=== PATIENT | female | born 1960 | race Caucasian/White ===

== ENCOUNTER → 2016-07-16 | Outpatient (CLI) | payer OTHER ==
--- NOTE | 2016-07-16 12:50 | MR ---
EXAMINATION TYPE: MR shoulder LT wo con DATE OF EXAM: 07/16/2016 11:58 AM COMPARISON: NONE HISTORY: lLeft shoulder pain TECHNIQUE: Multiplanar multispin echo imaging of the left shoulder was performed. FINDINGS: Rotator cuff : Increased signal along the undersurface of the supraspinatus tendon compatible with pa rtial undersurface tear. Remaining rotator cuff tendons are intact. Bursa: No bursal effusion or thickening is seen. Musculature: Abnormal signal surrounding and within a portion of the supraspinatus musculature compat ible with a strain with partial tear. Acromioclavicular joint : Small subacromial spur. Mild impingement. Osseous structures : There are no fractures or regions of abnormal bone marrow signal intensity. Long biceps tendon : The biceps tendon is normally situated within the bicipital groove. No complete or partial biceps tendon tear is present. Glenohumeral Joint fluid : There is no glenohumeral joint effusion. Cartilage and Bone : No focal hyaline cartilage defects are noted. No Hill-Sachs, reverse Hill-Sachs, or bony Bankart lesions are seen. Labrum : There are no SLAP or soft tissue Bankart lesions. No paralabral cysts are seen. OTHER FINDINGS : none IMPRESSION: 1. Abnormal signal surrounding and within a portion of the supraspinatus musculature compatible with a strain with partial tear. 2. Increased signal along the undersurface of the supraspinatus tendon compatible with partial unders urface tear.
== END | disposition home or self-care (01) ==
LOC: RADMRIMAIN 11:00
PROVIDERS: ATTEND Family Medicine
DX: R93.6 Abnormal findings on diagnostic imaging of limbs (principal); S46.012D Strain of muscle(s) and tendon(s) of the rotator cuff of left shoulder, subsequent encounter

== ENCOUNTER → 2016-11-06 | Outpatient (CLI) | payer OTHER ==
--- NOTE | 2016-11-08 11:01 | MM ---
Reason for exam: screening (asymptomatic). Last mammogram was performed 2 years and 9 months ago. History: Patient is postmenopausal. Physical Findings: A clinical breast exam by your physician is recommended on an annual basis and results should be correlated with mammographic findings. MG Screening Mammo w CAD Bilateral CC and MLO view(s) were taken. Prior study comparison: February 05, 2014, bilateral MG screening mammo w CAD. February 27, 2011, mammogram, performed at [facility]. The breast tissue is heterogeneously dense. This may lower the sensitivity of mammography. No significant changes when compared with prior studies. ASSESSMENT: Benign, BI-RAD 2 RECOMMENDATION: Routine screening mammogram of both breasts in 1 year.
== END | disposition home or self-care (01) ==
LOC: RADMAMWWP 07:18
PROVIDERS: ATTEND Family Medicine
DX: Z12.31 Encounter for screening mammogram for malignant neoplasm of breast (principal)

== ENCOUNTER 2016-12-19 08:02 | Day surgery (SDC) | payer OTHER ==
[2016-12-17 13:44] VITALS: BMI 25.0
--- NOTE | 2016-12-19 07:36 | P.GSHP ---
History of Present Illness H&P Date: 12/19/16 CHIEF COMPLAINT: Colon screen HISTORY OF PRESENT ILLNESS: The patient is a 56-year-old female who presents for colon screen. Lower endoscopy was offered for further evaluation and management. PAST MEDICAL HISTORY: Please see list. PAST SURGICAL HISTORY: Please see list. MEDICATIONS: Please see list. ALLERGIES: Please see list. SOCIAL HISTORY: No illicit drug use FAMILY HISTORY: No reports of Crohn disease or ulcerative colitis. REVIEW OF ORGAN SYSTEMS: CONSTITUTIONAL: No reports of fevers or chills. PHYSICAL EXAM: VITAL SIGNS: Stable GENERAL: Well-developed pleasant in no acute distress. HEENT: No scleral icterus. Extraocular movements grossly intact. Moist buccal mucosa. NECK: Supple without lymphadenopathy. CHEST: Unlabored respirations. Equal bilateral excursions. CARDIOVASCULAR: Regular rate and rhythm. Distal 2+ pulses. ABDOMEN: Soft, nontender, nondistended. MUSCULOSKELETAL: No clubbing, cyanosis, or edema. ASSESSMENT: 1. Colon screen. PLAN: 1. Recommend proceeding with a lower endoscopy Past Medical History Past Medical History: Cancer, COPD, Hyperlipidemia Additional Past Medical History / Comment(s): migraines, hx skin cancer, hypoglycemia History of Any Multi-Drug Resistant Organisms: None Reported Past Surgical History: Section, Hernia Repair, Hysterectomy Additional Past Surgical History / Comment(s): rt lung biopsy, biopsy under left eye(tear duct removed), Past Anesthesia/Blood Transfusion Reactions: Motion Sickness Smoking Status: Current every day smoker - Past Family History Sister(s) Family Medical History: Cancer Mother Family Medical History: Cancer Father Family Medical History: Cancer Medications and Allergies Home Medications Medication Instructions Recorded Confirmed Type Atorvastatin Calcium [Lipitor] 20 mg PO HS 12/17/16 12/17/16 History Ibuprofen [Motrin] 200 mg PO Q6HR PRN 12/17/16 12/17/16 History Ondansetron [Zofran] 4 mg PO Q8HR PRN 12/17/16 12/17/16 History SUMAtriptan SUCCINATE [Imitrex] 25 mg PO DAILY PRN 12/17/16 12/17/16 History Allergies Allergy/AdvReac Type Severity Reaction Status Date / Time pseudoephedrine HCl Allergy Unknown Ver[facility]17[facility]16 13:35 [facility]
[~2016-12-19 08:02] MED LIST: LACTATED RINGERS 1,000 ML IV SCH
[2016-12-19 08:29] VITALS: TEMP 97.4
[2016-12-19] MEDS ORDERED: LIDOCAINE 1% 20 ML VIAL (10MG/ML) FOR IV START INTRADERMA ONE (08:39)
[2016-12-19] MEDS ORDERED: PROPOFOL 10 MG/ML 20 ML VIAL IV ONE (08:43)
[2016-12-19] MEDS ORDERED: fentaNYL (PF) 50 MCG/ML 2 ML AMP ONE (08:43)
[2016-12-19] MEDS ORDERED: MIDAZOLAM 2 MG/2 ML VIAL ONE (08:43)
--- NOTE | 2016-12-19 09:13 | P.PCN ---
Date of Procedure: 12/19/16 Preoperative Diagnosis: Postoperative Diagnosis: Procedure(s) Performed: Implants: Indications for Procedure: Operative Findings: Description of Procedure: PREOPERATIVE DIAGNOSIS: Colonoscopy screening, initial Family history colon cancer, sister. POSTOPERATIVE DIAGNOSIS: Colonoscopy screening, initial Family history colon cancer, sister. Diverticulosis, scattered. Focal colitis ascending colon. Colorectal polyp mid transverse colon, rectum. Arteriovenous malformation, cecum. OPERATION: Colonoscopy to the ileocecal valve and appendiceal orifice. Colonoscopy with cold forcep biopsies, multiple. SURGEON: Angela Santiago MD. ANESTHESIA: MAC. INDICATIONS: The patient is a 56-year-old female who presents for colonoscopy screening. Benefits and risks were described and informed consent was obtained. DESCRIPTION OF PROCEDURE: The patient had undergone Gatorade, MiraLAX and Dulcolax prep. She had been brought into the operating room and laid in the left lateral decubitus position. After adequate intravenous sedation, the rectum was examined with 2% lidocaine jelly. No external hemorrhoids were encountered. The rectal tone was within normal limits. No lesions were palpated in the rectal vault. An Olympus colonoscope was advanced until the ileocecal valve and appendiceal orifice were clearly viewed. The prep was excellent with clear visualization of the mucosal folds. The scope was removed with visualization of each mucosal fold. Scattered diverticulosis was encountered. At the cecum, focal colitis along the ileocecal valve was identified and cold forceps biopsy. Separately, a small AV malformation without bleeding was found along the cecum. At the mid transverse colon and 10 cm from the anal verge, 3 mm hyperplastic polyp were cold forceps biopsy to completion. Retroflexion of the scope demonstrated grade 1 internal hemorrhoids without active bleeding or inflammation. The colon was desufflated. The patient had tolerated the procedure well. Withdrawal time was over 6 minutes. FINDINGS: Internal hemorrhoids, grade 1 No external prolapsed hemorrhoids. Scattered diverticulosis was encountered. At the cecum, focal colitis along the ileocecal valve was identified and cold forceps biopsy. Separately, a small AV malformation without bleeding was found along the cecum. At the mid transverse colon and 10 cm from the anal verge, 3 mm hyperplastic polyp were cold forceps biopsy to completion. RECOMMENDATIONS: Lower endoscopy in 3 years (2019) for family history of colon cancer and high risk polyps identified on exam. Plan - Discharge Summary New Discharge Prescriptions: No Action SUMAtriptan SUCCINATE [Imitrex] 25 mg PO DAILY PRN PRN Reason: Headache Ondansetron [Zofran] 4 mg PO Q8HR PRN PRN Reason: Nausea Ibuprofen [Motrin] 200 mg PO Q6HR PRN PRN Reason: Pain Atorvastatin Calcium [Lipitor] 20 mg PO HS Discharge Medication List Atorvastatin Calcium [Lipitor] 20 mg PO HS 12/17/16 [History] Ibuprofen [Motrin] 200 mg PO Q6HR PRN 12/17/16 [History] Ondansetron [Zofran] 4 mg PO Q8HR PRN 12/17/16 [History] SUMAtriptan SUCCINATE [Imitrex] 25 mg PO DAILY PRN 12/17/16 [History] Follow up Appointment(s)/Referral(s): Angela Santiago MD [STAFF PHYSICIAN] - 01/08/17 Patient Instructions/Handouts: Colorectal Polyps (DC), Diverticulosis (GEN), Arteriovenous Malformation (DC), Diverticulosis Diet (GEN) Activity/Diet/Wound Care/Special Instructions: Repeat colonoscopy in 3 years2019. Discharge Disposition: HOME SELF-CARE
[2016-12-19 09:15] VITALS: RESP 16
[2016-12-19 09:27] VITALS: BP 126/67; PULSE 62
== END 2016-12-19 09:45 | disposition home or self-care (01) ==
LOC: ORWHC2ENDO 08:02
PROVIDERS: ATTEND Surgery Plastic and Reconstructive Surgery
DX: Z12.11 Encounter for screening for malignant neoplasm of colon (principal); D12.3 Benign neoplasm of transverse colon; K63.5 Polyp of colon; K57.30 Diverticulosis of large intestine without perforation or abscess without bleeding; Q27.33 Arteriovenous malformation of digestive system vessel; K64.0 First degree hemorrhoids; Z80.0 Family history of malignant neoplasm of digestive organs; F17.200 Nicotine dependence, unspecified, uncomplicated; E78.5 Hyperlipidemia, unspecified; Z79.899 Other long term (current) drug therapy; Z88.8 Allergy status to other drugs, medicaments and biological substances; Z86.73 Personal history of transient ischemic attack (TIA), and cerebral infarction without residual deficits
CPT/HCPCS: 88305; 45380; J2250; J3010; J2704

== ENCOUNTER → 2018-12-30 | Outpatient (CLI) | payer OTHER ==
--- NOTE | 2018-12-31 13:58 | MM ---
Reason for exam: screening (asymptomatic). Last mammogram was performed 2 years and 2 months ago. History: Patient is postmenopausal and history of other cancer. Physical Findings: A clinical breast exam by your physician is recommended on an annual basis and results should be correlated with mammographic findings. MG Screening Mammo w CAD Bilateral CC and MLO view(s) were taken. Prior study comparison: November 06, 2016, bilateral MG screening mammo w CAD. February 05, 2014, bilateral MG screening mammo w CAD. There are scattered fibroglandular densities. Finding #1: There is a new 4-5mm circumscribed round mass located 5 cm from the nipple in the lower quadrant, anterior middle position of the left breast. Finding #2: There are typically benign round calcifications in both breasts. ASSESSMENT: Incomplete: need additional imaging evaluation, BI-RAD 0 RECOMMENDATION: Special view mammogram and ultrasound of the left breast. [facility] will attempt to contact patient to return for supplemental views and ultrasound.
== END | disposition home or self-care (01) ==
LOC: RADMAMWWP 09:09
PROVIDERS: ATTEND Family Medicine
DX: Z12.31 Encounter for screening mammogram for malignant neoplasm of breast (principal)
CPT/HCPCS: 77067

== ENCOUNTER → 2019-01-13 | Outpatient (CLI) | payer OTHER ==
--- NOTE | 2019-01-14 08:43 | MM ---
Reason for exam: additional evaluation requested from abnormal screening. Last mammogram was performed less than 1 month ago. History: Patient is postmenopausal and history of other cancer. Physical Findings: Nurse did not find any significant physical abnormalities on exam. MG Work Up Mamm w CAD LT Spot compression CC, spot compression MLO, and ML view(s) were taken of the left breast. Prior study comparison: December 30, 2018, bilateral MG screening mammo w CAD. November 06, 2016, bilateral MG screening mammo w CAD. There are scattered fibroglandular densities. There is a persistent 2mm left lower central middle depth mass with adjacent calcification. These results were verbally communicated with the patient and result sheet given to the patient on 01/13/19. ASSESSMENT: Incomplete: need additional imaging evaluation, BI-RAD 0 RECOMMENDATION: Ultrasound of the left breast. (inferior)
--- NOTE | 2019-01-14 08:44 | USB ---
Reason for exam: additional evaluation requested from abnormal screening. History: Patient is postmenopausal and history of other cancer. US Breast Workup Limited LT Left limited breast ultrasound including focal area of concern, retroareolar and axilla demonstrates a 0.3 x 0.3 x 0.2cm oval, cystic, benign lesion at 5 o'clock and a 2.1 x 1.9 x 0.6cm oval, axilla node. These results were verbally communicated with the patient and result sheet given to the patient on 01/13/19. ASSESSMENT: Benign, BI-RAD 2 RECOMMENDATION: Return to routine screening mammogram schedule for both breasts.
== END | disposition home or self-care (01) ==
LOC: RADMAMWWP 13:29
PROVIDERS: ATTEND Family Medicine
DX: R92.8 Other abnormal and inconclusive findings on diagnostic imaging of breast (principal)
CPT/HCPCS: 77065

== ENCOUNTER → 2019-01-26 | Outpatient (CLI) | payer OTHER ==
--- NOTE | 2019-01-26 09:53 | CT ---
EXAMINATION TYPE: CT soft tissue neck w con DATE OF EXAM: 01/26/2019 COMPARISON: None HISTORY: Enlarged lymph nodes CT DLP: 293.6 mGycm CONTRAST: Patient injected with 100 mL of Isovue 300. TECHNIQUE: Axial images at 3 mm thick sections. Reconstructed images in the coronal plane and sagitt al plane are reviewed. FINDINGS: Limited CT sections are obtained the lung apices. The lung apices appear clear. CT neck: The torus tubarius and fossa of Rosenmuller are normal. Senior Project Architect spaces are normal. Para nasal sinuses and mastoid air cells are clear. Parotid glands appear normal and symmetrical. Submandibular glands, are normal. Parapharyngeal spac es are normal. No suspicious adenopathy is evident. Small jugulodigastric lymph nodes are present. At the level marked by the BB, sternocleidomastoid muscle appears normal. No suspicious underlying ma ss is evident. The hypopharynx appears within normal limits. Vocal cord level appear symmetrical and closed at the time of exam. The subglottic airway is unremark able.. There is been a left thyroid lobectomy. Osseous structures are normal. IMPRESSIONS: 1. No suspicious abnormalities soft tissue neck.
== END | disposition home or self-care (01) ==
LOC: RADCTMAIN 07:06
PROVIDERS: ATTEND Family Medicine
DX: R59.0 Localized enlarged lymph nodes (principal)
CPT/HCPCS: 70491; Q9967

== ENCOUNTER 2019-12-10 07:45 | Day surgery (SDC) | payer OTHER ==
[2019-12-08 12:14] VITALS: BMI 29.2
[~2019-12-10 07:45] MED LIST changes: +LIDOCAINE 1% (10MG/ML) FOR IV START INTRADERMA PRN
[2019-12-10 08:17] VITALS: TEMP 97
--- NOTE | 2019-12-10 08:19 | P.GSHP ---
History of Present Illness H&P Date: 12/10/19 CHIEF COMPLAINT: Colon screen HISTORY OF PRESENT ILLNESS: The patient is a 59-year-old female who presents for colon screen. Lower endoscopy was offered for further evaluation and management. PAST MEDICAL HISTORY: Please see list. PAST SURGICAL HISTORY: Please see list. MEDICATIONS: Please see list. ALLERGIES: Please see list. SOCIAL HISTORY: No illicit drug use FAMILY HISTORY: No reports of Crohn disease or ulcerative colitis. REVIEW OF ORGAN SYSTEMS: CONSTITUTIONAL: No reports of fevers or chills. PHYSICAL EXAM: VITAL SIGNS: Stable GENERAL: Well-developed pleasant in no acute distress. HEENT: No scleral icterus. Extraocular movements grossly intact. Moist buccal mucosa. NECK: Supple without lymphadenopathy. CHEST: Unlabored respirations. Equal bilateral excursions. CARDIOVASCULAR: Regular rate and rhythm. Distal 2+ pulses. ABDOMEN: Soft, nontender, nondistended. MUSCULOSKELETAL: No clubbing, cyanosis, or edema. ASSESSMENT: 1. Colon screen. PLAN: 1. Recommend proceeding with a lower endoscopy Past Medical History Past Medical History: Cancer, COPD, GERD/Reflux, Hyperlipidemia, Hypertension Additional Past Medical History / Comment(s): Hx migraines, none in few years; hx skin cancer inner lt eye, recurrent; hypoglycemia History of Any Multi-Drug Resistant Organisms: None Reported Past Surgical History: Section, Hernia Repair, Hysterectomy Additional Past Surgical History / Comment(s): C-S x3. Rt lung biopsy; biopsy under left eye(tear duct removed), exc skin cancer lt inner eye, plastic surgery skin grafting (tissue posterior ear). Colonoscopy Past Anesthesia/Blood Transfusion Reactions: No Reported Reaction Additional Past Anesthesia/Blood Transfusion Reaction / Comment(s): denies Smoking Status: Current every day smoker - Past Family History Sister(s) Family Medical History: Cancer Additional Family Medical History / Comment(s): skin cancer, hx colon polyps Mother Family Medical History: Cancer Additional Family Medical History / Comment(s): leukemia Father Family Medical History: Cancer Additional Family Medical History / Comment(s): liver cancer, skin cancer Medications and Allergies Home Medications Medication Instructions Recorded Confirmed Type Ibuprofen [Motrin] 400 - 600 mg PO Q6HR PRN 12/17/16 12/08/19 History Fenofibrate [Lofibra] 160 mg PO DAILY 12/08/19 12/08/19 History Irbesartan [Avapro] 150 mg PO DAILY 12/08/19 12/10/19 History Omeprazole [PriLOSEC] 20 mg PO AC-[facility] 12/08/19 12/08/19 History Allergies Allergy/AdvReac Type Severity Reaction Status Date / Time pseudoephedrine HCl Allergy Nausea & Verified 12/10/19 08:04 [From [facility]] Vomiting Surgical - Exam Vital Signs Temp Pulse Resp BP Pulse Ox 97.0 F L 80 16 167/74 99 12/10/19 08:15 12/10/19 08:15 12/10/19 08:15 12/10/19 08:15 12/10/19 08:15
[2019-12-10 08:28] LABS: Glucose,Whole Blood 125 mg/dL (75-99)
[2019-12-10] MEDS ORDERED: LIDOCAINE 1% INJ 10MG/ML (20 ML MDV) ONE (08:56)
[2019-12-10] MEDS ORDERED: PROPOFOL 10 MG/ML 20 ML VIAL IV ONE (08:56)
--- NOTE | 2019-12-10 09:25 | P.PCN ---
Date of Procedure: 12/10/19 Description of Procedure: PREOPERATIVE DIAGNOSIS: Personal history of colon polyps POSTOPERATIVE DIAGNOSIS: Personal history of colon polyps Distal transverse colon polyp Sigmoid diverticulosis OPERATION: Colonoscopy to the ileocecal valve and appendiceal orifice, cecum Colonoscopy with cold forceps biopsies SURGEON: Angela Santiago MD. ANESTHESIA: MAC. INDICATIONS: The patient is an 59-year-old male who presents with personal history of colon polyps. Last colonoscopy within 5 years. Benefits and risks were described and informed consent was obtained. DESCRIPTION OF PROCEDURE: The patient had undergone Suprep. She had been brought into the operating room and laid in the left lateral decubitus position. After adequate intravenous sedation, the rectum was examined with 2% lidocaine jelly. No external hemorrhoids were encountered. The rectal tone was within normal limits. No lesions were palpated in the rectal vault. An Olympus colonoscope was advanced until the cecum, ileocecal valve and appendiceal orifice were clearly viewed. Abdominal pressure was used to advance the scope. The prep was fair. Very few sigmoid diverticulosis was encountered. Colonic polyp was found and removed from 60 cm from the anal verge, descending colon. No evidence of focal colitis was found. Retroflexion of the scope demonstrated grade 1 internal hemorrhoids without active bleeding or inflammation. The colon was desufflated. The patient had tolerated the procedure well. Withdrawal time was over 6 minutes. FINDINGS: Aronchick preparation quality scale 2 (1-5) Internal hemorrhoids, grade 1 No external hemorrhoids No arteriovenous malformations. Sigmoid diverticulosis, very few Removal of 1 polyp: - Cold forceps biopsy at 60 cm from the anal verge, 4 mm polyp. No focal colitis. RECOMMENDATIONS: Repeat colonoscopy in 5 years, 2024 Plan - Discharge Summary Discharge Rx Participant: No New Discharge Prescriptions: Continue Ibuprofen [Motrin] 400 - 600 mg PO Q6HR PRN PRN Reason: Pain Fenofibrate [Lofibra] 160 mg PO DAILY Irbesartan [Avapro] 150 mg PO DAILY Omeprazole [PriLOSEC] 20 mg PO [facility] Discharge Medication List Ibuprofen [Motrin] 400 - 600 mg PO Q6HR PRN 12/17/16 [History] Fenofibrate [Lofibra] 160 mg PO DAILY 12/08/19 [History] Irbesartan [Avapro] 150 mg PO DAILY 06/30/20 [History] Omeprazole [PriLOSEC] 20 mg PO AC-[facility] 12/08/19 [History] Follow up Appointment(s)/Referral(s): Angela Santiago MD [STAFF PHYSICIAN] - As Needed Patient Instructions/Handouts: Colorectal Polyps (DC) Activity/Diet/Wound Care/Special Instructions: Repeat colonoscopy 5 years, 2024 Discharge Disposition: HOME SELF-CARE
[2019-12-10 09:36] VITALS: BP 150/81; PULSE 66; RESP 18
== END 2019-12-10 09:52 | disposition home or self-care (01) ==
LOC: ORWHC2ENDO 07:45
PROVIDERS: ATTEND Surgery Plastic and Reconstructive Surgery
DX: Z12.11 Encounter for screening for malignant neoplasm of colon (principal); K63.5 Polyp of colon; K57.30 Diverticulosis of large intestine without perforation or abscess without bleeding; K64.0 First degree hemorrhoids; J44.9 Chronic obstructive pulmonary disease, unspecified; K21.9 Gastro-esophageal reflux disease without esophagitis; E78.5 Hyperlipidemia, unspecified; I10 Essential (primary) hypertension; F17.200 Nicotine dependence, unspecified, uncomplicated; Z86.010 Personal history of colon polyps; Z88.8 Allergy status to other drugs, medicaments and biological substances; Z85.828 Personal history of other malignant neoplasm of skin; Z86.69 Personal history of other diseases of the nervous system and sense organs; Z86.39 Personal history of other endocrine, nutritional and metabolic disease; Z98.890 Other specified postprocedural states; Z87.19 Personal history of other diseases of the digestive system; Z90.710 Acquired absence of both cervix and uterus; Z79.899 Other long term (current) drug therapy; Z80.8 Family history of malignant neoplasm of other organs or systems; Z83.71 Family history of colonic polyps; Z80.6 Family history of leukemia; Z80.0 Family history of malignant neoplasm of digestive organs
CPT/HCPCS: 88305; 45380; J2001; J2704

== ENCOUNTER → 2020-03-18 | Outpatient (CLI) | payer OTHER ==
--- NOTE | 2020-03-21 09:32 | MM ---
Reason for exam: screening (asymptomatic). Last mammogram was performed 1 year and 2 months ago. History: Patient is postmenopausal and history of other cancer. Physical Findings: A clinical breast exam by your physician is recommended on an annual basis and results should be correlated with mammographic findings. MG Screening Mammo w CAD Bilateral CC and MLO view(s) were taken. Prior study comparison: January 13, 2019, left breast MG work up mamm w CAD LT. December 30, 2018, bilateral MG screening mammo w CAD. Finding #1: There is a 6 mm equal density (isodense) mass in the upper inner quadrant of the right breast. Finding #2: There are typically benign calcifications in both breasts. There is a chronic nodularity in the left breast, stable. ASSESSMENT: Incomplete: need additional imaging evaluation, BI-RAD 0 RECOMMENDATION: Special view mammogram of the right breast. If lesion persists on supplemental views, image directed ultrasound is recommended. [facility] will attempt to contact patient to return for supplemental views and ultrasound if indicated.
== END | disposition home or self-care (01) ==
LOC: RADMAMWWP 08:00
PROVIDERS: ATTEND Family Medicine
DX: Z12.31 Encounter for screening mammogram for malignant neoplasm of breast (principal)
CPT/HCPCS: 77067

== ENCOUNTER → 2020-03-23 | Outpatient (CLI) | payer OTHER ==
--- NOTE | 2020-03-23 09:01 | MM ---
Reason for exam: additional evaluation requested from abnormal screening. Last mammogram was performed less than 1 month ago. History: Patient is postmenopausal and history of other cancer. Physical Findings: Nurse did not find any significant physical abnormalities on exam. MG Work Up Mamm w CAD RT Spot compression CC and spot compression MLO view(s) were taken of the right breast. Prior study comparison: March 18, 2020, bilateral MG screening mammo w CAD. January 13, 2019, left breast MG work up mamm w CAD LT. The breast tissue is heterogeneously dense. This may lower the sensitivity of mammography. Finding: There is a circumscribed oval mass located 5.2 cm from the nipple in the upper inner quadrant, middle position of the right breast. These results were verbally communicated with the patient and result sheet given to the patient on 03/23/20. ASSESSMENT: Incomplete: need additional imaging evaluation, BI-RAD 0 RECOMMENDATION: Ultrasound of the right breast.
--- NOTE | 2020-03-23 09:04 | USB ---
Reason for exam: additional evaluation requested from abnormal screening. History: Patient is postmenopausal and history of other cancer. US Breast Workup Limited RT Right limited breast ultrasound including focal area of concern, retroareolar and axilla demonstrates a 0.6 x 0.3 x 0.5cm oval, hypoechoic lesion at 1 o'clock. These results were verbally communicated with the patient and result sheet given to the patient on 03/23/20. ASSESSMENT: Benign, BI-RAD 2 RECOMMENDATION: Return to routine screening mammogram schedule for both breasts.
== END | disposition home or self-care (01) ==
LOC: RADMAMWWP 07:02
PROVIDERS: ATTEND Family Medicine
DX: R92.8 Other abnormal and inconclusive findings on diagnostic imaging of breast (principal)
CPT/HCPCS: 77065

== ENCOUNTER 2020-08-02 17:35 | Emergency (ER) | payer OTHER ==
[2020-08-02 17:38] VITALS: BP 181/76; PULSE 89; RESP 18; TEMP 98.1
--- NOTE | 2020-08-02 18:32 | ED ---
General Adult HPI - General Chief complaint: Extremity Problem,Nontraumatic Stated complaint: DVT Time Seen by Provider: 08/02/20 18:00 Source: patient Mode of arrival: ambulatory Limitations: no limitations - History of Present Illness Initial comments: Janell is a 59-year-old female who presents the ER today from the ultrasound suite for treatment of acute DVT. Patient is in some pain and swelling in her left lower extremity is yesterday, she sought care at an urgent care earlier today and was sent to the hospital for ultrasound. staff cytotechnologist was concern for DVT and sent her to the ER for management. Patient has no history of DVT. No known history of clotting disorder. No known family history. She denies any recent immobilization but admits she spends a lot of time sitting watching television. She denies any chest pain palpitations shortness of breath lightheadedness or near-syncope. - Related Data Home Medications Medication Instructions Recorded Confirmed Ibuprofen [Motrin] 400 - 600 mg PO Q6HR PRN 12/17/16 12/08/19 Fenofibrate [Lofibra] 160 mg PO DAILY 12/08/19 12/08/19 Irbesartan [Avapro] 150 mg PO DAILY 12/08/19 12/10/19 Omeprazole [PriLOSEC] 20 mg PO AC-BRKFST 12/08/19 12/08/19 Previous Rx's Medication Instructions Recorded Apixaban [Eliquis Starter Pack 0 mg PO DIRECTED 30 Days #1 pack 08/02/20 (for VTE)] Allergies Allergy/AdvReac Type Severity Reaction Status Date / Time pseudoephedrine HCl Allergy Nausea & Verified [facility]02[facility]20 17[facility]38 [facility] Vomiting Review of Systems ROS Statement: Those systems with pertinent positive or pertinent negative responses have been documented in the HPI. ROS Other: All systems not noted in ROS Statement are negative. Past Medical History Past Medical History: Cancer, COPD, GERD/Reflux, Hyperlipidemia, Hypertension Additional Past Medical History / Comment(s): Hx migraines, none in few years; hx skin cancer inner lt eye, recurrent; hypoglycemia History of Any Multi-Drug Resistant Organisms: None Reported Past Surgical History: Section, Hernia Repair, Hysterectomy Additional Past Surgical History / Comment(s): C-S x3. Rt lung biopsy; biopsy under left eye(tear duct removed), exc skin cancer lt inner eye, plastic surgery skin grafting (tissue posterior ear). Colonoscopy Past Anesthesia/Blood Transfusion Reactions: No Reported Reaction Additional Past Anesthesia/Blood Transfusion Reaction / Comment(s): denies Past Psychological History: No Psychological Hx Reported Smoking Status: Current every day smoker Past Alcohol Use History: None Reported Past Drug Use History: Marijuana - Past Family History Sister(s) Family Medical History: Cancer Additional Family Medical History / Comment(s): skin cancer, hx colon polyps Mother Family Medical History: Cancer Additional Family Medical History / Comment(s): leukemia Father Family Medical History: Cancer Additional Family Medical History / Comment(s): liver cancer, skin cancer General Exam - General Exam Comments Initial Comments: Physical Exam GENERAL: Patient is well-developed and well-nourished. Patient is nontoxic and well-hydrated and is in no distress. HENT: Normocephalic, Atraumatic. EYES: PERRL, EOMI PULMONARY: Unlabored respirations. CARDIOVASCULAR: RRR Warm and well perfused extremities Swelling of the left lower extremity ABDOMEN: Non-distended SKIN: No rashes or bruising : Deferred NEUROLOGIC: Alert and oriented Normal speech Normal gait MUSCULOSKELETAL: Moving all extremities with no apparent injury PSYCHIATRIC: No SI/HI Limitations: no limitations Course Vital Signs 08/02/20 17:37 Temperature 98.1 F Pulse Rate 89 Respiratory 18 Rate Blood Pressure 181/76 O2 Sat by Pulse 97 Oximetry Medical Decision Making - Medical Decision Making Doppler ultrasound results were reviewed patient has a DVT in the distal femoral and calf veins. Nothing in the proximal femoral or iliac therefore patient be started on L Jose and discharged home. Patient was given L Jose starter pack coupon and prescription. Patient was advised to follow with her primary care physician for refill on this and she will need to be on greater than 30 days of medication. All questions pertaining care were answered return parameters were discussed patient was discharged home in stable condition Disposition Clinical Impression: Deep vein thrombosis (DVT) of lower extremity Disposition: HOME SELF-CARE Condition: Stable Instructions (If sedation given, give patient instructions): Deep Vein Thrombosis (DC) Prescriptions: Apixaban [Eliquis Starter Pack (for VTE)] 0 mg PO DIRECTED 30 Days #1 pack Is patient prescribed a controlled substance at d/c from ED?: No Referrals: Jhon Houser MD [Primary Care Provider] - 1-2 days
== END 2020-08-02 18:54 | disposition home or self-care (01) ==
LOC: EC 17:35
DX: I82.412 Acute embolism and thrombosis of left femoral vein (principal); I82.4Z2 Acute embolism and thrombosis of unspecified deep veins of left distal lower extremity; F17.200 Nicotine dependence, unspecified, uncomplicated; K21.9 Gastro-esophageal reflux disease without esophagitis; I10 Essential (primary) hypertension; Z85.828 Personal history of other malignant neoplasm of skin; Z79.899 Other long term (current) drug therapy; Z88.8 Allergy status to other drugs, medicaments and biological substances
CPT/HCPCS: 99283

== ENCOUNTER → 2020-08-02 | Outpatient (CLI) | payer OTHER ==
--- NOTE | 2020-08-02 18:13 | US ---
EXAMINATION TYPE: US venous doppler duplex LE LT DATE OF EXAM: 08/02/2020 5:21 PM COMPARISON: NONE CLINICAL HISTORY: M79.605 Pain in lower limb left. Pain and swelling x 1 day. No hx of DVT. Patient d oes not take blood thinners. SIDE PERFORMED: Left TECHNIQUE: The lower extremity deep venous system is examined utilizing real time linear array sonog arleth with graded compression, doppler sonography and color-flow sonography. VESSELS IMAGED: Common Femoral Vein Deep Femoral Vein Greater Saphenous Vein * Femoral Vein Popliteal Vein Small Saphenous Vein * Proximal Calf Veins (* superficial vessels) Left Leg: There appear to be internal echoes within the left distal femoral vein, left popliteal vei n, and left prox calf veins. These veins appear to be noncompressible and to show little to no color flow. IMPRESSION: Findings of nonocclusive thrombus in the left distal superficial femoral vein through the proximal ca lf veins. Ordering physician was notified by the cardiac catheterization technologist and patient was advised to go to the e mergency department.
== END | disposition home or self-care (01) ==
LOC: RADUSWWP 17:00
PROVIDERS: ATTEND Family Medicine
DX: M79.605 Pain in left leg (principal)

== ENCOUNTER → 2021-03-14 | Day surgery (SDC) | payer OTHER ==
[2021-03-10 13:47] VITALS: BMI 28.3
[~2021-03-14] MED LIST changes: +ALPRAZolam 0.25 MG TAB PO PRN; +ASPIRIN 325 MG TAB PO PRN; +IOPAMIDOL-250 100ML BTL INTRAARTER ONE; -LACTATED RINGERS 1,000 ML IV SCH; -LIDOCAINE 1% (10MG/ML) FOR IV START INTRADERMA PRN; +LIDOCAINE 1% INJ 10MG/ML (20 ML MDV) ONE; +LIDOCAINE 1% INJ 10MG/ML (20 ML MDV) SQ ONE; +MIDAZOLAM 2 MG/2 ML VIAL IV ONE; +SODIUM CHLORIDE 0.9% 1,000 ML IV ONE; +SODIUM CHLORIDE 0.9% 1,000 ML in EMPTY BAG 1 BAG IV ONE; +VERAPAMIL 2.5 MG/ML 2 ML AMP ONE; +fentaNYL (PF) 50 MCG/ML 2 ML AMP IV ONE; +fentaNYL (PF) 50 MCG/ML 2 ML AMP ONE
[2021-03-14 06:36] LABS: Basophils # (A) 0.1 k/uL (0-0.2); Basophils % (A) 1 %; Eosinophils # (A) 0.2 k/uL (0-0.7); Eosinophils % (A) 2 %; HCT 40.6 % (34.0-46.0); HGB 13.1 gm/dL (11.4-16.0); Lymphocytes # (A) 3.9 k/uL (1.0-4.8); Lymphocytes % (A) 34 %; MCHC 32.3 g/dL (31.0-37.0); MCV 92.9 fL (80.0-100.0); Monocytes # (A) 0.5 k/uL (0-1.0); Monocytes % (A) 5 %; Neutrophils # (A) 6.4 k/uL (1.3-7.7); Neutrophils % (A) 57 %; Platelet Count 174 k/uL (150-450); RBC 4.37 m/uL (3.80-5.40); RDW 13.8 % (11.5-15.5); WBC 11.3 k/uL (3.8-10.6)
[2021-03-14 06:41] VITALS: RESP 16; TEMP 97.8
[2021-03-14 06:54] LABS: Calcium 9.3 mg/dL (8.4-10.2); Potassium 4.2 mmol/L (3.5-5.1)
--- NOTE | 2021-03-14 08:06 | P.OP ---
Date of Procedure: 03/14/21 Description of Procedure: Preoperative diagnosis: Claudication, [place] classification 3 Postop diagnosis: Claudication [place] classification 3, Aortic stenosis with moderate stenosis, Right common iliac artery stenosis >90%, Left common iliac artery stenosis occlusion Procedure: Aortogram with bilateral lower extremity runoffs via left radial artery access under ultrasound guidance Surgeon: Boaz Anesthesia: Moderate sedation times 20 minutes Contrast: 80 mL Fluoroscopy time: 3.4 minutes Estimated blood loss: 5 mL Complications: None Condition: Stable Findings: Aorta: Atherosclerotic with calcification noted throughout and ulceration noted in the midportion of the aorta with stenosis approximately 50% Iliacs: Right common iliac artery with greater than 90% focal stenosis. Left common iliac is occluded with reconstitution via large collateral to the distal common iliac just above the bifurcation. Bilateral external and internal iliac arteries are patent with minimal atherosclerotic disease. Femorals: Bilateral common femoral, superficial femoral and profundus femoris arteries are patent with mild atherosclerotic disease without any evidence of significant stenosis. Popliteal: Bilateral popliteal arteries are patent with minimal atherosclerotic disease without significant stenosis Tibials: Bilateral TPT trunk is patent with three-vessel takeoff. There is two- vessel runoff to the ankle bilaterally. Contrast is slow to due to proximal disease. Tibial vessels have mild atherosclerotic disease without any significant stenosis. Operative narrative: After written informed consent was obtained the patient all risks benefits competitions were described the patient is brought to the Billing Services Manager and laid in a supine position. The area of the left radial artery was prepped and draped in the usual sterile fashion. Local anesthesia with moderate sedation was performed with continuous pulse ox monitoring and EKG monitoring. Utilizing ultrasound the left radial artery was visualized and shown to be patent without any significant plaque. Utilizing a multipurpose needle under ultrasound guidance the artery was accessed. Guidewire was placed followed by 5-Uzbek sheath. 035 Glidewire was then placed into the aorta followed by pigtail catheter. Angiogram was then obtained of the aorta. Catheter was then placed at the bifurcation and lower extremity runoffs were obtained. Once completed all guidewires, catheters and sheaths were removed and pressure was placed for hemostasis. Patient tolerated procedure well was sent to PACU for recovery. Plan - Discharge Summary Discharge Rx Participant: No New Discharge Prescriptions: No Action Fenofibrate [Lofibra] 160 mg PO DAILY Omeprazole [PriLOSEC] 20 mg PO AC-BRKFST Apixaban [Eliquis Starter Pack (for VTE)] 5 mg PO DIRECTED Acetaminophen Tab [Tylenol Tab] 500 mg PO DAILY PRN PRN Reason: Pain Losartan Potassium 100 mg PO DAILY Discharge Medication List Fenofibrate [Lofibra] 160 mg PO DAILY 12/08/19 [History] Omeprazole [PriLOSEC] 20 mg PO AC-BRKFST 12/08/19 [History] Acetaminophen Tab [Tylenol Tab] 500 mg PO DAILY PRN 03/13/21 [History] Apixaban [Eliquis Starter Pack (for VTE)] 5 mg PO DIRECTED 03/13/21 [History] Losartan Potassium 100 mg PO DAILY 03/13/21 [History] Follow up Appointment(s)/Referral(s): Oscar Sandra DO [STAFF PHYSICIAN] - 2 Weeks Discharge Disposition: HOME SELF-CARE
--- NOTE | 2021-03-14 08:27 | IR ---
EXAMINATION TYPE: IR angio abdominal w runoff DATE OF EXAM: 03/14/2021 CLINICAL HISTORY: Peripheral arterial disease. TECHNIQUE: Fluoroscopy. COMPARISON: None. FINDINGS: Fluoroscopic guidance was provided during abdominal angiogram with runoff procedure perfor med by Dr. Sandra. A total of 3.4 minutes of fluoroscopic time was utilized during the procedure an d 168 spot images was acquired. Images show access via upper extremity with subsequent angiogram and runoff images. IMPRESSION: As Above.
[2021-03-14 16:11] VITALS: BP 136/60; PULSE 68
== END | disposition home or self-care (01) ==
LOC: CATHCVL 05:58
PROVIDERS: ATTEND Surgery
DX: I35.0 Nonrheumatic aortic (valve) stenosis (principal); I73.9 Peripheral vascular disease, unspecified; Z20.822 Contact with and (suspected) exposure to COVID-19
CPT/HCPCS: 76937; 36200; 75625; 75716; 80048; 85025; 87635; C1894; C1769; J2250; J2001; J3010; Q9966

== ENCOUNTER → 2021-03-29 | Outpatient (CLI) | payer OTHER ==
[2021-03-29 10:22] LABS: Basophils # (A) 0.1 k/uL (0-0.2); Basophils % (A) 1 %; Eosinophils # (A) 0.2 k/uL (0-0.7); Eosinophils % (A) 1 %; HCT 42.1 % (34.0-46.0); Lymphocytes # (A) 3.7 k/uL (1.0-4.8); Lymphocytes % (A) 32 %; MCH 29.4 pg (25.0-35.0); MCHC 30.8 g/dL (31.0-37.0); MCV 95.7 fL (80.0-100.0); Mean Platelet Volume 9.1; Monocytes # (A) 0.4 k/uL (0-1.0); Monocytes % (A) 3 %; Neutrophils # (A) 7.1 k/uL (1.3-7.7); Neutrophils % (A) 61 %; Platelet Count 186 k/uL (150-450); RDW 13.6 % (11.5-15.5); WBC 11.6 k/uL (3.8-10.6)
[2021-03-29 10:48] LABS: Potassium 4.3 mmol/L (3.5-5.1)
== END | disposition home or self-care (01) ==
LOC: LABPAT 09:26
PROVIDERS: ATTEND Surgery
DX: Z01.812 Encounter for preprocedural laboratory examination (principal); I77.1 Stricture of artery
CPT/HCPCS: 80051; 82565; 84520; 85025

== ENCOUNTER 2021-04-10 05:47 | Day surgery (SDC) | payer OTHER ==
[2021-04-07 09:01] VITALS: BMI 28.6
[2021-04-10] MEDS: SODIUM CHLORIDE 0.9% 1,000 ML IV SCH ×3 (06:03→14:15)
[2021-04-10] MEDS ORDERED: LIDOCAINE 1% (10MG/ML) FOR IV START INTRADERMA PRN (06:03)
[2021-04-10] MEDS ORDERED: SODIUM CHLORIDE 0.9% 1,000 ML IV ONE (06:25)
[2021-04-10 06:37] LABS: HCT 40.1 % (34.0-46.0); HGB 13.3 gm/dL (11.4-16.0); MCH 30.5 pg (25.0-35.0); MCHC 33.2 g/dL (31.0-37.0); MCV 91.8 fL (80.0-100.0); Platelet Count 164 k/uL (150-450); RBC 4.37 m/uL (3.80-5.40); RDW 13.2 % (11.5-15.5)
[2021-04-10 06:48] LABS: Albumin 4.1 g/dL (3.5-5.0); Calcium 9.8 mg/dL (8.4-10.2); Potassium 3.9 mmol/L (3.5-5.1); Total Bilirubin 0.3 mg/dL (0.2-1.3); Total Protein 6.8 g/dL (6.3-8.2)
[2021-04-10] MEDS ORDERED: ePHEDrine 50 MG/ML 1 ML AMP ONE (07:25)
[2021-04-10] MEDS ORDERED: fentaNYL (PF) 50 MCG/ML 2 ML AMP ONE (07:25)
[2021-04-10] MEDS ORDERED: ROCURONIUM 10 MG/ML (5 ML VIAL) IV ONE (07:25)
[2021-04-10] MEDS ORDERED: SUCCINYLCHOLINE CHLORIDE 100 MG/5 ML SYR IV ONE (07:25)
[2021-04-10] MEDS ORDERED: ONDANSETRON 4 MG/2 ML VIAL ONE ×2 (07:25→12:30)
[2021-04-10] MEDS ORDERED: MIDAZOLAM 2 MG/2 ML VIAL ONE (07:25)
[2021-04-10] MEDS ORDERED: LIDOCAINE 1% INJ 10MG/ML (20 ML MDV) ONE (07:25)
[2021-04-10] MEDS ORDERED: PHENYLEPHRINE-0.9% NACL SYG 1,000 MCG/10 ML SYRINGE ONE (07:25)
[2021-04-10] MEDS ORDERED: PROPOFOL 10 MG/ML 20 ML VIAL IV ONE (07:25)
[2021-04-10] MEDS ORDERED: HEPARIN SODIUM,PORCINE 10,000 UNIT/ML 1 ML VIAL ONE (07:25)
[2021-04-10] MEDS ORDERED: LACTATED RINGERS 1,000 ML IV ONE (09:57)
[2021-04-10] MEDS ORDERED: IOPAMIDOL-250 100ML BTL INTRAARTER ONE ×3 (11:40→11:42)
[2021-04-10] MEDS ORDERED: ACETAMINOPHEN TAB 500 MG TAB PO PRN (11:58)
[2021-04-10] MEDS ORDERED: CLOPIDOGREL 75 MG TAB PO STA (12:10)
[2021-04-10] MEDS ORDERED: ONDANSETRON 4 MG/2 ML VIAL IVP ONE (12:37)
--- NOTE | 2021-04-10 13:40 | IR ---
EXAMINATION TYPE: IR stent intravas non coronary DATE OF EXAM: 04/10/2021 COMPARISON: NONE HISTORY: Fluoroscopy time. Fluoroscopy was provided to the referring clinician.
[2021-04-10] MEDS: HYDROmorphone 0.5 MG/0.5 ML SYRINGE IVP PRN ×2 (14:06→22:08)
[2021-04-10] MEDS: LACTATED RINGERS 1,000 ML IV SCH (14:14)
[2021-04-10] MEDS ORDERED: ATORVASTATIN 20 MG TAB PO SCH (21:00)
[2021-04-11] MEDS: SODIUM CHLORIDE 0.9% 1,000 ML IV SCH (02:54)
[2021-04-11] MEDS: LACTATED RINGERS 1,000 ML IV SCH (06:09)
[2021-04-11] MEDS: PANTOPRAZOLE 40 MG TABLET PO SCH ×2 (06:28→09:39)
[2021-04-11] MEDS ORDERED: FENOFIBRATE 160 MG TAB PO SCH (09:00)
[2021-04-11] MEDS ORDERED: CLOPIDOGREL 75 MG TAB PO SCH (09:00)
[2021-04-11] MEDS ORDERED: APIXABAN 5 MG TAB PO SCH (09:00)
[2021-04-11] MEDS ORDERED: LOSARTAN 50 MG TAB PO SCH (09:00)
[2021-04-11] MEDS ORDERED: ONDANSETRON 4 MG/2 ML VIAL IVP PRN (09:19)
[2021-04-11 11:06] VITALS: TEMP 98.4
[2021-04-11] MEDS ORDERED: MAG HYDROX/AL HYDROX/SIMETH 30 ML CUP PO PRN (12:36)
--- NOTE | 2021-04-11 12:42 | P.CONS ---
History of Present Illness - Reason for Consult Gastroesophageal reflux disease - History of Present Illness Patient is a pleasant 60-year-old female admitted for the aorto femoral occlusive disease and patient underwent stent placement. Patient is clinically doing well passing gas except for severe epigastric burning sensation and retrosternal burning sensation and some nausea. Patient is passing gas. Patient is otherwise clinically doing well. REVIEW OF SYSTEMS: CONSTITUTIONAL: No fever, no malaise, no fatigue. HEENT: No recent visual problems or hearing problems. Denied any sore throat. CARDIOVASCULAR: No chest pain, orthopnea, PND, no palpitations, no syncope. PULMONARY: No shortness of breath, no cough, no hemoptysis. GASTROINTESTINAL: No diarrhea,no vomiting, no abdominal pain. NEUROLOGICAL: No headaches, no weakness, no numbness. HEMATOLOGICAL: Denies any bleeding or petechiae. GENITOURINARY: Denies any burning micturition, frequency, or urgency. MUSCULOSKELETAL/RHEUMATOLOGICAL: Denies any joint pain, swelling, or any muscle pain. ENDOCRINE: Denies any polyuria or polydipsia. The rest of the 14-point review of systems is negative. PHYSICAL EXAMINATION: GENERAL: The patient is alert and oriented x3, not in any acute distress. Well developed, well nourished. HEENT: Pupils are round and equally reacting to light. EOMI. No scleral icterus. No conjunctival pallor. Normocephalic, atraumatic. No pharyngeal erythema. No thyromegaly. CARDIOVASCULAR: S1 and S2 present. No murmurs, rubs, or gallops. PULMONARY: Chest is clear to auscultation, no wheezing or crackles. ABDOMEN: Soft, nontender, nondistended, normoactive bowel sounds. No palpable organomegaly. MUSCULOSKELETAL: No joint swelling or deformity. EXTREMITIES: No cyanosis, clubbing, or pedal edema. NEUROLOGICAL: Gross neurological examination did not reveal any focal deficits. SKIN: No rashes. Assessment and plan -Massive gaseous reflux disease HIS proton pump inhibitor to twice a day pro bably precipitated by stress related to hospitalization -Cerebrovascular disease and obtuse ER. Disease for which patient underwent stent placement -History of DVT and patient is on anti-coagulation with Eliquis which will be continued -Hyperlipidemia hypertension -COPD without any acute exacerbation patient continues to smoke but willing to quit smoking DVT prophylaxis: On Eliquis Past Medical History Past Medical History: Cancer, COPD, Deep Vein Thrombosis (DVT), GERD/Reflux, Hyperlipidemia, Hypertension Additional Past Medical History / Comment(s): Hx migraines, none in few years, hx skin cancer inner left eyelid, hypoglycemia, hx left leg DVT. History of Any Multi-Drug Resistant Organisms: None Reported Past Surgical History: Section, Hernia Repair, Hysterectomy Additional Past Surgical History / Comment(s): Section X3, right lung biopsy, biopsy under left eye(tear duct removed), excision of skin cancer left inner eye, plastic surgery skin grafting (tissue posterior ear), Colonoscopy, aortagram. Past Anesthesia/Blood Transfusion Reactions: No Reported Reaction Additional Past Anesthesia/Blood Transfusion Reaction / Comm: Dizziness with sudden position change. Past Psychological History: No Psychological Hx Reported Additional Psychological History / Comment(s): Anxiety when having procedures. Smoking Status: Current every day smoker Past Alcohol Use History: None Reported Additional Past Alcohol Use History / Comment(s): Smokes 1/2 PPD, started smoking age 19. Past Drug Use History: Marijuana Additional Drug Use History / Comment(s): Marijuana use a couple of times per day. Aware no use 24 hrs prior to procedure. - Past Family History Sister(s) Family Medical History: Cancer Additional Family Medical History / Comment(s): Skin cancer, hx colon polyps. Mother Family Medical History: Cancer Additional Family Medical History / Comment(s): Leukemia. Father Family Medical History: Cancer Additional Family Medical History / Comment(s): Liver cancer, skin cancer. Medications and Allergies Home Medications Medication Instructions Recorded Confirmed Type Fenofibrate [Lofibra] 160 mg PO DAILY 12/08/19 04/10/21 History Omeprazole [PriLOSEC] 20 mg PO AC-BRKFST 12/08/19 04/10/21 History Acetaminophen Tab [Tylenol Tab] 500 mg PO DAILY PRN 03/13/21 04/10/21 History Apixaban [Eliquis Starter Pack 5 mg PO BID 03/13/21 04/10/21 History (for VTE)] Losartan Potassium 100 mg PO DAILY 03/13/21 04/10/21 History Atorvastatin [Lipitor] 20 mg PO HS 04/07/21 04/10/21 History Allergies Allergy/AdvReac Type Severity Reaction Status Date / Time pseudoephedrine HCl Allergy Nausea & Verified 04/10/21 07:43 [From Sudafed] Vomiting Physical Exam Vitals: Vital Signs Temp Pulse Resp BP BP Pulse Ox 04/11/21 08:00 98.4 F 84 20 135/70 98 04/11/21 03:44 98.2 F 70 18 132/70 97 04/11/21 02:00 68 18 04/11/21 00:00 98.0 F 68 18 124/68 95 04/10/21 20:00 98.4 F 75 18 111/54 99 04/10/21 16:00 97.5 F L 68 16 121/68 98 04/10/21 15:44 66 16 112/53 97 04/10/21 14:44 62 16 118/56 97 04/10/21 13:44 68 16 99/63 94 L 04/10/21 13:33 74 16 113/56 89 L 04/10/21 13:16 58 L 16 129/63 95 04/10/21 13:00 68 16 114/55 95 04/10/21 12:45 54 L 16 111/57 97 Intake and Output 04/10/21 04/11/21 04/11/21 22:59 06:59 14:59 Intake Total 430 1500 118 Balance 430 1500 118 Intake: Intake, IV Titration 900 Amount Sodium Chloride 0.9% 1, 900 000 ml @ 75 mls/hr IV . [id number] [facility] Rx#:[id number] Oral 430 600 118 Other: # Voids 3 Weight 65.1 kg 69.5 kg Results CBC & Chem 7: 04/10/21 06:22 04/11/21 07:12
--- NOTE | 2021-04-11 13:47 | P.DS ---
Providers Expected date of discharge: 04/11/21 Attending physician: Oscar Sandra DO Consults: 04/11/21 10:31 Consult Physician Routine Consulting Provider: Aparna Lanier Consult Reason/Comments: medical management Do you want consulting provider notified?: Yes Primary care physician: Milan Billy [facility] Course: This is a 60-year-old female who underwent EVAR and iliac stenting yesterday for claudication who had a recent aortogram and lateral lower extremity angiograms that demonstrated occlusion of the left common iliac artery and 90% stenosis of the right common iliac artery. She is postop day #1. She has been up and ambulating. She is voiding. Only complaint is that she is coughing which she states is chronic for her however she has had some nausea and coughing up quite a bit of phlegm and has a decreased appetite. She's been afebrile. Denies any bleeding from her groin sites. She states pain to lower extremities is improved especially with walking. No acute changes through the night. Incentive spirometer ordered to bedside. Physical exam: General appearance: The patient is alert, oriented, appears in no acute distress. HET: Head is normocephalic and atraumatic. Neck: Supple without lymphadenopathy. Trachea midline. Heart: S1 S2. Regular rate and rhythm. Lungs: Clear to auscultation. Abdomen: Soft, nontender, nondistended. Extremities: Normal skin color and turgor. No cyanosis, rash, ulceration, clubbing, or edema. Radial and pedal pulses are 2/4 bilaterally. Groin sites with dressings clean dry and intact. Neurological: No focal deficits. Strength and sensation are grossly intact. Procedures: Endovascular aortic aneurysm repair with bilateral iliac stenting Patient Condition at Discharge: Good Plan - Discharge Summary Discharge Rx Participant: Yes New Discharge Prescriptions: New Mag Hydrox/Al Hydrox/Simeth [Maalox] 30 ml PO Q4HR PRN ml PRN Reason: Gi Upset Clopidogrel [Plavix] 75 mg PO DAILY #30 tab Continue Fenofibrate [Lofibra] 160 mg PO DAILY Omeprazole [PriLOSEC] 20 mg PO AC-BRKFST Apixaban [Eliquis Starter Pack (for VTE)] 5 mg PO BID Acetaminophen Tab [Tylenol] 500 mg PO DAILY PRN PRN Reason: Pain Losartan Potassium 100 mg PO DAILY Atorvastatin [Lipitor] 20 mg PO HS Discharge Medication List Fenofibrate [Lofibra] 160 mg PO DAILY 12/08/19 [History] Omeprazole [PriLOSEC] 20 mg PO AC-BRKFST 12/08/19 [History] Acetaminophen Tab [Tylenol] 500 mg PO DAILY PRN 03/13/21 [History] Apixaban [Eliquis Starter Pack (for VTE)] 5 mg PO BID 03/13/21 [History] Losartan Potassium 100 mg PO DAILY 03/13/21 [History] Atorvastatin [Lipitor] 20 mg PO HS 04/07/21 [History] Clopidogrel [Plavix] 75 mg PO DAILY #30 tab 04/11/21 [Rx] Mag Hydrox/Al Hydrox/Simeth [Maalox] 30 ml PO Q4HR PRN ml 04/11/21 [Rx] Follow up Appointment(s)/Referral(s): Oscar Sandra DO [STAFF PHYSICIAN] - 1 Week Patient Instructions/Handouts: How to Stop Smoking (DC), Endovascular Aneurysm Repair of Abdominal Aorta (DC) Activity/Diet/Wound Care/Special Instructions: No heavy lifting or strenuous activity greater than 5-10 pounds. May shower but no tub baths until follow-up with vascular surgery. Begin Plavix 75 mg daily Smoking cessation Discharge Disposition: HOME SELF-CARE
[2021-04-11 14:02] VITALS: BP 151/72; PULSE 86; RESP 18
[2021-04-11] MEDS ORDERED: PANTOPRAZOLE 40 MG TABLET PO SCH (17:30)
--- NOTE | 2021-04-17 07:37 | P.OP ---
Date of Procedure: 04/10/21 Description of Procedure: Date: 04/10/2021 Preoperative diagnosis: Bilateral lower extremity disabling claudication Laram[place] classification 4, rest pain, aortoiliac occlusive disease Postoperative diagnosis: Bilateral lower extremity claudication [place] 4, right common iliac artery severe stenosis greater than 90%, left common iliac artery occlusion, aortic stenosis greater than 90% Procedure: 1. Ultrasound-guided bilateral common femoral artery access, left brachial artery access 2. Aortogram with bilateral iliofemoral angiograms 3. Percutaneous transluminal balloon angioplasty of the left common iliac artery 4. Percutaneous transluminal balloon angioplasty of the right common iliac a rtery 5. Endovascular aortic repair with AFX 25 x 100 mm graft 6. Percutaneous transluminal balloon angioplasty of the left common iliac artery and external iliac artery junction 7. Aortic balloon angioplasty in graft with kissing 8 x 20 and 8 x 40 mm balloon 8. Percutaneous stenting of the left common iliac artery and external iliac artery with 7 x 100 mm ever Flex self-expanding stent 9. Percutaneous closure of the right common femoral artery with Perclose and 8F Angio-Seal 10. Percutaneous closure of the left common femoral artery with Vascade Surgeon: Oscar Sandra DO [employer] C[employer] Developer: none Anesthesia: GETA EBL: 200 mL Fluoro Time: 79.8 minutes Complications:None Condition: Stable Disposition Stable, palpable right DP and left PT pulse Indication for procedure: 60-year-old female presented originally to the office secondary to severe pain with ambulation consistent with claudication as well as rest pain indicative of Francisco classification 4. She underwent aortogram with runoff from the arm which demonstrated severe aortoiliac occlusive disease with 2 areas of aortic stenosis greater than 80-90% with right common iliac artery occlusion at the takeoff and left common iliac extending to the external iliac artery occlusion. She presents today for endovascular repair with aortoiliac stenting. Operative Narrative: After written and informed consent was obtained the patient all risks benefits and complications were described the patient is brought to the [facility] and laid in the supine position. The area of the groins were prepped and draped in usual sterile fashion after appropriate anesthetic was performed per the anesthesiologist. A timeout was performed in normal fashion antibiotics were administered prior to accessed. Under ultrasound guidance bilateral common femoral arteries were accessed and utilizing Seldinger technique a 6-Stateless sheath was placed in bilateral femoral arteries. An 035 glidewire was placed up the right femoral sheath into the aorta followed by a pigtail catheter and aortogram was obtained demonstrating severe stenosis of the right common iliac artery and occlusion of the left common iliac artery with reconstitution at the external iliac artery. Patient was administered heparin and followed with ACTs and redosed as needed. Utilizing multiple wires attempt to cross the left common iliac artery lesion was performed. Ultimately we had to change the right femoral sheath to a 6.5F Destino directional sheath and in an up and over fashion the lesion was crossed with an 035 wire and crossing catheter. The left femoral sheath was also upsized to a 7F sheath and the wire was snared and brought out of the sheath in a body floss technique. A dot wire was then placed in the right femoral sheath and directed into the aorta followed by a 5x60mm balloon and aortic balloon angioplasty at the bifurcation was performed. Another balloon was also utilized to balloon across the left iliac occlusion. There was a dissection flap noted at the left iliac occlusion site extending to the bifurcation. Another dot wire from the left femoral sheath was then directed into the aorta while the right iliac balloon was occlu ding the iliac to help direct upwards. Once up in the aorta an aortogram was taken and intraluminal access was verified. The 014 dot wire was then upsized to an 035 wire and body floss wire was removed. Attention was then placed to placing the AFX graft. Two percloses were then placed in usual fashion at the right femoral artery and an 8F sheath was placed. Once completed the wire was unable to be placed into the aorta across the dissection flap and therefore access from the arm was required. Utilizing ultrasound a 5F sheath was placed into the brachial artery on the left and a wire and catheter were placed into the infrarenal aorta. The right iliac artery was then entered and wire was placed into the right femoral sheath. The wire was taken out of the sheath and using a body floss technique a catheter was placed into the aorta from the right groin. The wire was removed and a stiff wire was placed into the descending thoracic aorta. Two 5x40mm balloons were then placed up both femoral sheaths and the bifurcation was ballooned. The right femoral sheath was then removed and the AFX introducer sheath was placed. The main body ([id number]) of the AFX was then advanced to above the bifurcation in normal fashion and deployed above the bifurcation ultimately then pulled down to the bifurcation. Once main body was deployed attention was then placed to the contralateral limb which was deployed by removing the yellow loop cover. A pigtail catheter was then placed over the wire and the contralateral wire was unlocked with the pigtail catheter. Pigtail catheter was then placed above the renal arteries. Wire was then placed through the pigtail catheter and catheter was removed. Bilateral iliac balloon angioplasties were then performed in a kissing technique with resolution of the right iliac stenosis. There was still residual blockage of the left external iliac artery with dissection and therefore a [id number] Everflex self expanding stent was placed extending within the graft down to the distal external iliac artery. Once again the overlap was ballooned with 8x40mm balloons and a pigtail was once again placed above the graft and angiogram was obtained demonstrating brisk flow with resolution of the left iliac occlusion All guidewires and catheters were then removed and the Perclose closure device was utilized for hemostasis for the right femoral artery as well as an 8F angio- seal. A Vascade was then placed through the 7-Stateless sheath for hemostasis in normal fashion. Aortogram was then obtained from the brachial access after a pigtail was placed demonstrating good flow to the femoral arteries bilaterally with no extravasation or occlusion. The wires, and brachial sheath were removed and pressure placed for hemostasis. Once hemostatic the areas were then cleansed and dressings were placed. The patient tolerated the procedure well and had palpable right DP and left PT pulses at the conclusion of the procedure. He was then sent to PACU for recovery.
== END 2021-04-11 15:24 | disposition home or self-care (01) ==
LOC: CATHCVL 05:47 → 3SCARD 11:44 → CATHCVL 04-11 15:24
PROVIDERS: ATTEND Surgery
DX: I70.223 Atherosclerosis of native arteries of extremities with rest pain, bilateral legs (principal); I70.0 Atherosclerosis of aorta; Z86.718 Personal history of other venous thrombosis and embolism; J44.9 Chronic obstructive pulmonary disease, unspecified; N28.9 Disorder of kidney and ureter, unspecified; E78.00 Pure hypercholesterolemia, unspecified; I10 Essential (primary) hypertension; F17.210 Nicotine dependence, cigarettes, uncomplicated; E78.5 Hyperlipidemia, unspecified; K21.9 Gastro-esophageal reflux disease without esophagitis; E16.2 Hypoglycemia, unspecified; Z85.43 Personal history of malignant neoplasm of ovary; Z85.828 Personal history of other malignant neoplasm of skin; Z98.891 History of uterine scar from previous surgery; Z90.710 Acquired absence of both cervix and uterus; Z98.890 Other specified postprocedural states; Z81.1 Family history of alcohol abuse and dependence; Z80.6 Family history of leukemia; Z79.01 Long term (current) use of anticoagulants; Z79.02 Long term (current) use of antithrombotics/antiplatelets; Z88.8 Allergy status to other drugs, medicaments and biological substances; Z79.899 Other long term (current) drug therapy
CPT/HCPCS: 37221; 37223; 86900; 86901; 80053; 82565; 85027; 86850; C1894 ×7; C1760 ×3; C1733; C1769 ×10; C1725 ×3; C1887 ×2; C1876; C1874; J2250; J1644; J2405 ×2; J2001; J3010; J2370; J0330; J2704; J1170; Q9966

== ENCOUNTER → 2021-05-01 | Outpatient (CLI) | payer OTHER ==
--- NOTE | 2021-05-01 10:45 | CT ---
EXAMINATION TYPE: CT angio abd aorta w/Runoff DATE OF EXAM: May 09, 2011 HISTORY: AAA w/o rupture,Iliofemoral occlusive disease CT DLP: 1273.4mGycm Automated Exposure Control for Dose Reduction was Utilized. CONTRAST: CTA scan of the abdomen and pelvis with bilateral lower extremity runoff is performed without oral wi thout and with IV Contrast, patient injected with 125 mL of Isovue 370. Three-D reconstructed images. Independent workstation and reviewed COMPARISON: CT abdomen and pelvis May 09, 2021 FINDINGS: Vascular: New aortobiiliac stent graft beginning at level of the renal arteries. There is a patent ce liac artery and SMA above this. Patent bilateral renal arteries axial image 26. In retrospect there w as an accessory small caliber right renal artery originating from the lower abdominal aorta prior donte dy coronal series 5 image 34 which now is presumed occluded as now is not identified. Occluded KEVIN cu rrent study. Moderate to severe calcified plaque in the hoh aorta extending into the iliac branch vessels remai ns present. Small caliber common iliac arteries bilaterally redemonstrated. There is additional graft extension into the left external iliac artery which is patent. Patency of the bilateral iliac arteri es is noted. Moderate mixed plaque at the common femoral artery bilaterally prominent from prior study. No signifi cant stenosis. Satisfactory branching into superficial and deep femoral arteries. No significant plaq ue or stenosis along the superficial femoral arteries bilaterally extending into the popliteal arteri es. Mild calcified plaque bilaterally. Popliteal arteries bilaterally are patent without significant plaque or stenosis. There is satisfactory bifurcation and trifurcation. Good Three-vessel flow in the mid leg and good 2 vessel flow in the ankle region extending into the hindfoot bilaterally. Delayed phase images show no suspicious delayed enhancement. LUNG BASES: Persistent heterogeneous 3.7 x 3.4 cm mediastinal mass adjacent to the right heart with i ncreasing internal calcification is stable in size. No significant postcontrast enhancement seen. New 8 x 7 mm right lower lobe nodule axial image 4. LIVER/GB: No significant abnormality is appreciated. PANCREAS: No significant abnormality is seen. SPLEEN: No significant abnormality is seen. ADRENALS: No significant abnormality is seen. KIDNEYS: Diminished enhancement and some cortical volume loss in the lower pole right kidney on postc ontrast images. BOWEL: Few diverticula in the sigmoid colon. No CT evidence for acute diverticulitis. UTERUS/ADNEXA: Uterus surgically absent or markedly atrophic similar to prior. LYMPH NODES: No greater than 1cm abdominal or pelvic lymph nodes are appreciated. OSSEOUS STRUCTURES: No significant abnormality is seen. LOWER EXTREMITIES: No significant abnormality. OTHER: Small fat-containing umbilical hernia. IMPRESSION: 1. Interval placement of patent aortobiiliac stent graft. Occluded small caliber accessory right edy l artery causing diminished perfusion to portion of the lower pole right kidney after placement. No s ignificant stenosis to either lower extremity currently. 2. Increasing calcification in the lower mediastinal mass which is stable in size, suggesting benign etiology given 10 year stability. 3. New 8 x 7 mm right lower lobe pulmonary nodule, advise follow-up contrast-enhanced chest CT to fur ther evaluate for additional nodules.
== END | disposition home or self-care (01) ==
LOC: RADCTMAIN 07:55
PROVIDERS: ATTEND Surgery
DX: I71.4 Abdominal aortic aneurysm, without rupture (principal); I74.5 Embolism and thrombosis of iliac artery
CPT/HCPCS: 82565; 84520; 75635; 36415; Q9967

== ENCOUNTER → 2021-05-25 | Outpatient (CLI) | payer OTHER | END | disposition home or self-care (01) | LOC: LABWHC1 10:30 | PROVIDERS: ATTEND Family Medicine | DX: R09.81 Nasal congestion (principal) | CPT/HCPCS: U0003; C9803 ==

== ENCOUNTER → 2021-05-29 | Outpatient (CLI) | payer OTHER ==
--- NOTE | 2021-05-29 11:03 | CT ---
EXAMINATION TYPE: CT chest w con DATE OF EXAM: 05/29/2021 COMPARISON: CT abdomen 05/01/[address] from 05/09/2011 HISTORY: 60-year-old female Solitary pulmonary nodule, RLL TECHNIQUE: Contiguous axial scanning of the chest after the administration of 100 mL of Isovue 300. Coronal/sagittal reconstructions performed. CT DLP: 239.9mGycm. Automatic exposure control utilized for a dose reduction. FINDINGS: Query prior left thyroidectomy. Heart normal size without pericardial effusion. Mild aortic valvular calcifications. Mild atherosclerotic arch calcifications. Conventional branching anatomy. A few nonenlarged mediastinal lymph nodes. Right hilar lymph node measuring 8 mm. No thoracic lymphad enopathy by CT size criteria. Thick walled lobulated cystic mass redemonstrated along the right cardiophrenic angle. This measures 4.7 x 3.7 cm (versus 4.0 x 3.5 cm on 05/09/2011. Progressive coarse calcifications especially along t he periphery of the lesion. A 7 mm posterior right lower lobe pulmonary nodule, axial image 38. Previous exams did not include th is region to assess for stability. Mild centrilobular emphysema. Biapical pleural-parenchymal scarring. No consolidation or pleural effusion. Visualized upper abdomen shows a 1.3 cm low-density nodule of the left adrenal gland with attenuation of -4 Hounsfield units compatible with a benign adrenal adenoma. Partially visualized abdominal sten t graft just below the renal artery take off. Bones: Small left paracentral disc protrusion at T11-T12. IMPRESSION: 1. Thick-walled lobulated cystic mass at the right cardiophrenic angle measuring 4.7 x 3.7 cm (versus 4.0 x 3.5 cm on 05/09/2011). Relatively indolent growth behavior. There have been progressive calcif ications within the lesion since that time. Some considerations include solitary fibrous tumor of the pleura, a complex pericardial cyst, and mediastinal teratoma. Consider referral to pulmonary medicin e for surveillance. Recommend at least annual CT follow-up to ensure ongoing stability. If further in crease in size is encountered, consider surgical evaluation. 2. COPD with mild emphysema. There is a 7 mm right lower lobe pulmonary nodule. Previous exams did no t include this portion of the lung to determine stability. Three-month follow-up CT recommended to re assess. 3. Incidental 1.3 cm benign lipid rich left adrenal adenoma.
== END | disposition home or self-care (01) ==
LOC: RADCTMAIN 07:36
PROVIDERS: ATTEND Family Medicine
DX: D35.02 Benign neoplasm of left adrenal gland (principal); J43.9 Emphysema, unspecified
CPT/HCPCS: 71260; Q9967

== ENCOUNTER 2021-08-18 14:32 | Emergency (ER) | payer OTHER ==
[2021-08-18 14:49] VITALS: TEMP 99.3
[2021-08-18] MEDS ORDERED: SODIUM CHLORIDE 0.9% 1,000 ML IV STA (15:51)
[2021-08-18] MEDS ORDERED: ONDANSETRON 4 MG/2 ML VIAL IVP STA (15:51)
[2021-08-18] MEDS ORDERED: SODIUM CHLORIDE 0.9% 500 ML 500 ML IV STA (15:51)
--- NOTE | 2021-08-18 16:20 | ED ---
Abdominal Pain HPI - General Chief Complaint: Abdominal Pain Stated Complaint: Nausea, Weakness Time Seen by Provider: 08/18/21 15:33 Source: patient, family, RN notes reviewed Mode of arrival: wheelchair Limitations: no limitations - History of Present Illness Initial Comments: This is a 60-year-old female who presents to the emergency department with n ausea and vomiting. She was discharged from [facility] on 08/14/[facility]21. She was diagnosed with a urinary tract infection and started on Keflex. She did not have any dysuria, hematuria, or urgency at that time and denies this currently. She did test positive for Covid, however the hospital did not contact her, and when the health Department called her to inform her of the results, she was out of the quarantine period. She has had constant nausea and vomiting since discharge and is unable to keep any food down. At this point, she is only vomiting phlegm due to her lack of oral intake. She has had fevers and chills at home. Denies any current changes in bowel habits or changes in urination. She does have abdominal pain, she states her vomiting is making this worse. MD Complaint: abdominal pain Location: suprapubic Radiation: none Migration to: no migration Consistency: constant Improves With: nothing Associated Symptoms: nausea, vomiting, fever, chills, anorexia - Related Data Home Medications Medication Instructions Recorded Confirmed Fenofibrate [Lofibra] 160 mg PO DAILY 12/08/19 08/18/21 Omeprazole [PriLOSEC] 20 mg PO DAILY PRN 12/08/19 08/18/21 Acetaminophen Tab [Tylenol] 500 mg PO Q6H PRN 03/13/21 08/18/21 Losartan Potassium 100 mg PO DAILY 03/13/21 08/18/21 Atorvastatin [Lipitor] 20 mg PO HS 04/07/21 08/18/21 Apixaban [Eliquis] 5 mg PO BID 08/18/21 08/18/21 Cephalexin [Keflex] 500 mg PO BID 08/18/21 08/18/21 Clopidogrel [Plavix] 75 mg PO HS 08/18/21 08/18/21 Multivit with Calcium,Iron,Min 1 tab PO DAILY 08/18/21 08/18/21 [Women's Multivitamin] amLODIPine [Norvasc] 5 mg PO DAILY 08/18/21 08/18/21 Previous Rx's Medication Instructions Recorded Ondansetron Odt [Zofran Odt] 4 mg PO Q8HR PRN #30 tab 08/18/21 Allergies Allergy/AdvReac Type Severity Reaction Status Date / Time pseudoephedrine HCl Allergy Nausea & Verified 08/18/21 17:36 [From Sudafed] Vomiting Review of Systems ROS Statement: Those systems with pertinent positive or pertinent negative responses have been documented in the HPI. ROS Other: All systems not noted in ROS Statement are negative. Constitutional: Reports: fever, chills ENT: Denies: ear pain, throat pain Respiratory: Denies: cough, dyspnea Cardiovascular: Denies: chest pain, palpitations, dyspnea on exertion Endocrine: Reports: fatigue Gastrointestinal: Reports: abdominal pain, nausea, vomiting. Denies: diarrhea, hematemesis, melena, hematochezia Genitourinary: Denies: urgency, dysuria, frequency, hematuria Musculoskeletal: Denies: back pain Skin: Denies: rash, lesions Neurological: Reports: weakness. Denies: headache Past Medical History Past Medical History: Cancer, COPD, Deep Vein Thrombosis (DVT), GERD/Reflux, Hyperlipidemia, Hypertension Additional Past Medical History / Comment(s): Hx migraines, none in few years, hx skin cancer inner left eyelid, hypoglycemia, hx left leg DVT. History of Any Multi-Drug Resistant Organisms: None Reported Past Surgical History: No Surgical Hx Reported Additional Past Surgical History / Comment(s): C-S x3. Rt lung biopsy; biopsy under left eye(tear duct removed), exc skin cancer lt inner eye, plastic surgery skin grafting (tissue posterior ear). Colonoscopy, leg stents Past Anesthesia/Blood Transfusion Reactions: No Reported Reaction Additional Past Anesthesia/Blood Transfusion Reaction / Comment(s): denies. dizziness with sudden position change Past Psychological History: Anxiety, Depression Smoking Status: Current every day smoker Past Alcohol Use History: None Reported Past Drug Use History: Marijuana - Past Family History Sister(s) Family Medical History: Cancer Additional Family Medical History / Comment(s): Skin cancer, hx colon polyps. Mother Family Medical History: Cancer Additional Family Medical History / Comment(s): Leukemia. Father Family Medical History: Cancer Additional Family Medical History / Comment(s): Liver cancer, skin cancer. General Exam Limitations: no limitations General appearance: alert, in distress Head exam: Present: atraumatic, normocephalic, normal inspection Respiratory exam: Present: wheezes, decreased breath sounds. Absent: respiratory distress, chest wall tenderness Cardiovascular Exam: Present: regular rate, normal rhythm, normal heart sounds. Absent: systolic murmur, diastolic murmur, rubs, gallop, clicks GI/Abdominal exam: Present: soft, tenderness (Suprapubic region), guarding, hyperactive bowel sounds. Absent: distended, rebound, rigid, organomegaly, mass Neurological exam: Present: alert, oriented X3, CN II-XII intact Psychiatric exam: Present: normal affect, normal mood Skin exam: Present: warm, dry, intact, normal color. Absent: rash Course Vital Signs 08/18/21 08/18/21 14:45 21:21 Temperature 99.3 F Pulse Rate 89 79 Respiratory 20 16 Rate Blood Pressure 147/81 135/75 O2 Sat by Pulse 98 94 L Oximetry - Reevaluation(s) Reevaluation #1: 08/18/21 18:40 Patient is sitting up in the past, and states she feels much better after being treated with fluids and Zofran. Medical Decision Making - Medical Decision Making This is a 60-year-old female who presents to the emergency department with nausea and vomiting. Patient appears to be overall unwell. Lab work was found to be unremarkable, and her urinalysis does not reveal an acute infection. Chest x-ray obtained given the adventitious sounds heard on physical exam. It demonstrated a prior calcification that has been slowly growing and was initially found in 2014. It also revealed COPD changes, but no acute cardiopulmonary process. Computed tomography scan of the abdomen and pelvis obtained because patient has exquisite tenderness in the lower abdomen with guarding. The computed tomography scan did not reveal any acute abnormalities. Following the treatment with Zofran and fluids the patient stated she felt significantly improved. She was also able to eat half of a ham sandwich, which she states was more than she had eaten in the last week and a half. Patient states that she overall feels ready for discharge home. She was given a starter pack for Zofran and a prescription was sent to the pharmacy. Return precautions reviewed in depth, the patient is instructed to return to the emergency department if symptoms worsen or do not improve. Patient verbalized understanding. This case was discussed in detail with the attending ED physician. Presentation, findings, and treatment plan discussed in detail as well. - Lab Data Result diagrams: 08/18/21 16:44 08/18/21 16:44 Lab Results 08/18/21 08/18/21 08/18/21 Range/Units 16:44 16:44 16:44 WBC 6.9 (3.8-10.6) k/uL RBC 4.93 (3.80-5.40) m/uL Hgb 14.5 (11.4-16.0) gm/dL Hct 43.2 (34.0-46.0) % MCV 87.6 (80.0-100.0) fL MCH 29.4 (25.0-35.0) pg MCHC 33.6 (31.0-37.0) g/dL RDW 14.0 (11.5-15.5) % Plt Count 175 (150-450) k/uL MPV 9.3 Neutrophils % 55 % Lymphocytes % 32 % Monocytes % 8 % Eosinophils % 0 % Basophils % 1 % Neutrophils # 3.8 (1.3-7.7) k/uL Lymphocytes # 2.2 (1.0-4.8) k/uL Monocytes # 0.5 (0-1.0) k/uL Eosinophils # 0.0 (0-0.7) k/uL Basophils # 0.1 (0-0.2) k/uL ESR 13 (0-20) mm/hr PT 10.8 (9.0-12.0) sec INR 1.0 (<1.2) APTT 26.9 (22.0-30.0) sec Sodium 136 L (137-145) mmol/L Potassium 3.8 (3.5-5.1) mmol/L Chloride 105 (98-107) mmol/L Carbon Dioxide 22 (22-30) mmol/L Anion Gap 9 mmol/L BUN 21 H (7-17) mg/dL Creatinine 1.14 H (0.52-1.04) mg/dL Est GFR (CKD-EPI)AfAm 62 (>60 ml/min/1.73 sqM) Est GFR (CKD-EPI)NonAf 53 (>60 ml/min/1.73 sqM) Glucose 94 (74-99) mg/dL Plasma Lactic Acid Hernan (0.7-2.0) mmol/L Calcium 9.3 (8.4-10.2) mg/dL Total Bilirubin 0.5 (0.2-1.3) mg/dL AST 33 (14-36) U/L ALT 20 (4-34) U/L Alkaline Phosphatase 55 (38-126) U/L Creatine Kinase 35 (30-135) U/L Troponin I (0.000-0.034) ng/mL C-Reactive Protein 2.9 H (<1.0) mg/dL Total Protein 6.9 (6.3-8.2) g/dL Albumin 4.0 (3.5-5.0) g/dL Amylase 65 (30-110) U/L Lipase 39 (23-300) U/L Urine Color Urine Appearance (Clear) Urine pH (5.0-8.0) Ur Specific Sheldon (1.001-1.035) Urine Protein (Negative) Urine Glucose (UA) (Negative) Urine Ketones (Negative) Urine Blood (Negative) Urine Nitrite (Negative) Urine Bilirubin (Negative) Urine Urobilinogen (<2.0) mg/dL Ur Leukocyte Esterase (Negative) Urine RBC (0-5) /hpf Urine WBC (0-5) /hpf Ur Squamous Epith Cells (0-4) /hpf Hyaline Casts (0-2) /lpf Urine Mucus (None) /hpf 08/18/21 08/18/21 08/18/21 Range/Units 16:44 16:44 17:40 WBC (3.8-10.6) k/uL RBC (3.80-5.40) m/uL Hgb (11.4-16.0) gm/dL Hct (34.0-46.0) % MCV (80.0-100.0) fL MCH (25.0-35.0) pg MCHC (31.0-37.0) g/dL RDW (11.5-15.5) % Plt Count (150-450) k/uL MPV Neutrophils % % Lymphocytes % % Monocytes % % Eosinophils % % Basophils % % Neutrophils # (1.3-7.7) k/uL Lymphocytes # (1.0-4.8) k/uL Monocytes # (0-1.0) k/uL Eosinophils # (0-0.7) k/uL Basophils # (0-0.2) k/uL ESR (0-20) mm/hr PT (9.0-12.0) sec INR (<1.2) APTT (22.0-30.0) sec Sodium (137-145) mmol/L Potassium (3.5-5.1) mmol/L Chloride (98-107) mmol/L Carbon Dioxide (22-30) mmol/L Anion Gap mmol/L BUN (7-17) mg/dL Creatinine (0.52-1.04) mg/dL Est GFR (CKD-EPI)AfAm (>60 ml/min/1.73 sqM) Est GFR (CKD-EPI)NonAf (>60 ml/min/1.73 sqM) Glucose (74-99) mg/dL Plasma Lactic Acid Hernan 1.0 (0.7-2.0) mmol/L Calcium (8.4-10.2) mg/dL Total Bilirubin (0.2-1.3) mg/dL AST (14-36) U/L ALT (4-34) U/L Alkaline Phosphatase (38-126) U/L Creatine Kinase (30-135) U/L Troponin I <0.012 (0.000-0.034) ng/mL C-Reactive Protein (<1.0) mg/dL Total Protein (6.3-8.2) g/dL Albumin (3.5-5.0) g/dL Amylase (30-110) U/L Lipase (23-300) U/L Urine Color Yellow Urine Appearance Clear (Clear) Urine pH 6.0 (5.0-8.0) Ur Specific Sheldon 1.029 (1.001-1.035) Urine Protein 1+ H (Negative) Urine Glucose (UA) Negative (Negative) Urine Ketones 1+ H (Negative) Urine Blood Negative (Negative) Urine Nitrite Negative (Negative) Urine Bilirubin Negative (Negative) Urine Urobilinogen 2.0 (<2.0) mg/dL Ur Leukocyte Esterase Negative (Negative) Urine RBC 2 (0-5) /hpf Urine WBC 3 (0-5) /hpf Ur Squamous Epith Cells 3 (0-4) /hpf Hyaline Casts 1 (0-2) /lpf Urine Mucus Many H (None) /hpf - Radiology Data Radiology results: report reviewed, image reviewed Disposition Clinical Impression: Nausea and vomiting Disposition: HOME SELF-CARE Instructions (If sedation given, give patient instructions): Acute Nausea and Vomiting (ED), Abdominal Pain (ED) Additional Instructions: Return to the emergency department if symptoms worsen, including but not limited to, worsening fevers and chills, return of nausea and vomiting, and increased pain. Prescriptions: Ondansetron Odt [Zofran Odt] 4 mg PO Q8HR PRN #30 tab PRN Reason: Nausea And Vomiting Is patient prescribed a controlled substance at d/c from ED?: No Referrals: Milan Cervantes DO [Primary Care Provider] - 1-2 days
[2021-08-18 17:18] LABS: Basophils # (A) 0.1 k/uL (0-0.2); Basophils % (A) 1 %; Eosinophils % (A) 0 %; HCT 43.2 % (34.0-46.0); HGB 14.5 gm/dL (11.4-16.0); Lymphocytes # (A) 2.2 k/uL (1.0-4.8); Lymphocytes % (A) 32 %; MCH 29.4 pg (25.0-35.0); MCHC 33.6 g/dL (31.0-37.0); MCV 87.6 fL (80.0-100.0); Mean Platelet Volume 9.3; Monocytes # (A) 0.5 k/uL (0-1.0); Monocytes % (A) 8 %; Neutrophils # (A) 3.8 k/uL (1.3-7.7); Neutrophils % (A) 55 %; Platelet Count 175 k/uL (150-450); RBC 4.93 m/uL (3.80-5.40); WBC 6.9 k/uL (3.8-10.6)
[2021-08-18 17:20] LABS: C Reactive Protein 2.9 mg/dL (<1.0); Calcium 9.3 mg/dL (8.4-10.2); Potassium 3.8 mmol/L (3.5-5.1); Total Bilirubin 0.5 mg/dL (0.2-1.3); Total Protein 6.9 g/dL (6.3-8.2)
[2021-08-18 17:27] LABS: Partial Thromboplastin Time 26.9 sec (22.0-30.0); Prothrombin Time 10.8 sec (9.0-12.0)
[2021-08-18 17:51] LABS: Appearance,Urine Clear (Clear); Bilirubin,Urine Negative (Negative); Blood,Urine Negative (Negative); Color,Urine Yellow; Glucose,Urine (UA) Negative (Negative); Hyaline Casts,Urine 1 /lpf (0-2); Ketones,Urine 1+ (Negative); Leukocyte Esterase,Urine Negative (Negative); Mucus,Urine Many /hpf; Nitrite,Urine Negative (Negative); Protein,Urine 1+ (Negative); RBC,Urine 2 /hpf (0-5); Specific Gravity,Urine 1.029 (1.001-1.035); Squamous Epithelial Cell,Urine 3 /hpf (0-4); WBC,Urine 3 /hpf (0-5)
[2021-08-18 18:10] LABS: Erythrocyte Sedimentation Rate 13 mm/hr (0-20)
--- NOTE | 2021-08-18 19:02 | XR ---
EXAMINATION TYPE: XR chest 2V DATE OF EXAM: 08/18/2021 6:33 PM COMPARISON: CT chest 05/29/2021 TECHNIQUE: XR chest 2V Frontal and lateral views of the chest. CLINICAL INDICATION:Female, 60 years old with history of Wheezing; FINDINGS: Lungs/Pleura: Redemonstration of right anterior lower lung persists calcified lesion is seen dating b ack to 2016 measuring 43 x 34 mm in today's exam. There is flattening of the diaphragm with increased lucency of the lungs. No evidence of pneumothorax, pleural effusion or focal consolidation. Pulmonary vascularity: Unremarkable. Heart/mediastinum: Cardiomediastinal silhouette is unremarkable. Musculoskeletal: No acute osseous pathology. IMPRESSION: 1. No acute cardiopulmonary disease/process. 2. Redemonstration of right lower lung medial partially calcified lesion dating back to at least 201 5 although it has slowly increased in size over the years. 3. COPD changes
--- NOTE | 2021-08-18 20:43 | CT ---
EXAMINATION TYPE: CT abdomen pelvis wo con CT DLP: 496.6 mGycm, Automated exposure control for dose reduction was used. DATE OF EXAM: 08/18/2021 7:23 PM COMPARISON: CT abdomen pelvis most recent from 05/01/2021 CT chest 05/29/2021. CLINICAL INDICATION:Female, 60 years old with history of Acute abdominal pain; TECHNIQUE: Standard CT of the abdomen and pelvis without IV or oral contrast. Lack of IV or oral co ntrast limits evaluation of solid and hollow organ viscera. Coronal and sagittal reformats were perfo rmed. FINDINGS: LOWER CHEST: Similar appearing partially calcified mass in the right cardiophrenic epicardial fat. ABDOMEN LIVER: Unremarkable GALLBLADDER AND BILE DUCTS: Unremarkable. PANCREAS: Unremarkable. SPLEEN: Unremarkable. ADRENAL GLANDS: Unremarkable. KIDNEYS AND URETERS: No evidence of hydronephrosis or renal calculus. The ureters are unremarkable. PELVIS BLADDER: Unremarkable REPRODUCTIVE: Unremarkable. ABDOMEN & PELVIS STOMACH AND BOWEL: Scattered diverticula are noted throughout the colon. No evidence of bowel obstruc tion. Appendix is visualized and within normal limits. PERITONEUM: No evidence of pneumoperitoneum or free fluid. VASCULATURE: No evidence of aortic aneurysm. Aorto biiliac stents and left common iliac stent. Mild s cattered atherosclerotic disease noted. MUSCULOSKELETAL: No acute osseous abnormalities LYMPH NODES: No gross evidence for lymphadenopathy. SOFT TISSUE/ABDOMINAL WALL: Unremarkable IMPRESSION: 1. No evidence for acute intraluminal process. 2. Aortobiiliac and left common iliac stents. 3. Colonic diverticulosis. 4. Partially visualized right cardiac phrenic angle persists calcified mass.
[2021-08-18] MEDS ORDERED: ONDANSETRON 4 MG ODT STARTER PACK 2 TAB BTL PO STA (21:06)
[2021-08-18 21:22] VITALS: BP 135/75; PULSE 79; RESP 16
== END 2021-08-18 21:22 | disposition home or self-care (01) ==
LOC: EC 14:32
DX: R11.2 Nausea with vomiting, unspecified (principal); J44.9 Chronic obstructive pulmonary disease, unspecified; I10 Essential (primary) hypertension; K21.9 Gastro-esophageal reflux disease without esophagitis; F17.200 Nicotine dependence, unspecified, uncomplicated; Z79.890 Hormone replacement therapy; Z86.718 Personal history of other venous thrombosis and embolism; Z88.8 Allergy status to other drugs, medicaments and biological substances
CPT/HCPCS: 36415; 80053; 85652; 82150; 82550; 83605; 83690; 84484; 85025; 85610; 85730; 86140; 81001; 71046; 74176; 99284; 96374; 96361; J2405; S0119

== ENCOUNTER 2022-01-10 17:23 | Emergency (ER) | payer OTHER ==
[2022-01-10 18:05] VITALS: BP 178/77; PULSE 95; RESP 16; TEMP 98.7
--- NOTE | 2022-01-10 19:32 | ED ---
General Adult HPI - General Chief complaint: Fever Stated complaint: fever, bodyaches Time Seen by Provider: 01/10/22 19:10 Source: patient, RN notes reviewed, old records reviewed Mode of arrival: ambulatory Limitations: no limitations - History of Present Illness Initial comments: This is a 61-year-old female who states she woke up this morning she was achy all over and had a mild headache. Patient states she's not vaccinated against COVID. Patient states she felt like she had a fever all day. Patient decided come to the emergency department. Patient stated she doesn't believe she was around anyone who had COVID. Patient denies any chest pain difficulty breathing shortness of breath per patient denies any abdominal pain. Patient denies any vomiting or diarrhea. Patient denies any numbness weakness. - Related Data Home Medications Medication Instructions Recorded Confirmed Fenofibrate [Lofibra] 160 mg PO DAILY 12/08/19 08/18/21 Omeprazole [PriLOSEC] 20 mg PO DAILY PRN 12/08/19 08/18/21 Acetaminophen Tab [Tylenol] 500 mg PO Q6H PRN 03/13/21 08/18/21 Losartan Potassium 100 mg PO DAILY 03/13/21 08/18/21 Atorvastatin [Lipitor] 20 mg PO HS 04/07/21 08/18/21 Apixaban [Eliquis] 5 mg PO BID 08/18/21 08/18/21 Cephalexin [Keflex] 500 mg PO BID 08/18/21 08/18/21 Clopidogrel [Plavix] 75 mg PO HS 08/18/21 08/18/21 Multivit with Calcium,Iron,Min 1 tab PO DAILY 08/18/21 08/18/21 [Women's Multivitamin] amLODIPine [Norvasc] 5 mg PO DAILY 08/18/21 08/18/21 Previous Rx's Medication Instructions Recorded Ondansetron Odt [Zofran Odt] 4 mg PO Q8HR PRN #30 tab 08/18/21 Allergies Allergy/AdvReac Type Severity Reaction Status Date / Time pseudoephedrine HCl Allergy Nausea & Verified 01/10/22 18:05 [From Sudafed] Vomiting Review of Systems ROS Statement: Those systems with pertinent positive or pertinent negative responses have been documented in the HPI. ROS Other: All systems not noted in ROS Statement are negative. Past Medical History Past Medical History: Cancer, COPD, Deep Vein Thrombosis (DVT), GERD/Reflux, Hyperlipidemia, Hypertension Additional Past Medical History / Comment(s): Hx migraines, none in few years, hx skin cancer inner left eyelid, hypoglycemia, hx left leg DVT. History of Any Multi-Drug Resistant Organisms: None Reported Past Surgical History: No Surgical Hx Reported Additional Past Surgical History / Comment(s): C-S x3. Rt lung biopsy; biopsy under left eye(tear duct removed), exc skin cancer lt inner eye, plastic surgery skin grafting (tissue posterior ear). Colonoscopy, leg stents Past Anesthesia/Blood Transfusion Reactions: No Reported Reaction Additional Past Anesthesia/Blood Transfusion Reaction / Comment(s): denies. dizziness with sudden position change Past Psychological History: Anxiety, Depression Smoking Status: Current every day smoker Past Alcohol Use History: None Reported Past Drug Use History: Marijuana - Past Family History Sister(s) Family Medical History: Cancer Additional Family Medical History / Comment(s): Skin cancer, hx colon polyps. Mother Family Medical History: Cancer Additional Family Medical History / Comment(s): Leukemia. Father Family Medical History: Cancer Additional Family Medical History / Comment(s): Liver cancer, skin cancer. General Exam - General Exam Comments Initial Comments: GENERAL: Patient is well-developed and well-nourished. Patient is nontoxic and well- hydrated and is in mild distress. ENT: Neck is soft and supple. No significant lymphadenopathy is noted. Oropharynx is clear. Moist mucous membranes. Neck has full range of motion without eliciting any pain. EYES: The sclera were anicteric and conjunctiva were pink and moist. Extraocular movements were intact and pupils were equal round and reactive to light. Eyelids were unremarkable. PULMONARY: Unlabored respirations. Good breath sounds bilaterally. No audible rales rhonchi or wheezing was noted. CARDIOVASCULAR: There is a regular rate and rhythm without any murmurs gallops or rubs. ABDOMEN: Soft and nontender with normal bowel sounds. SKIN: Skin is clear with no lesions or rashes and otherwise unremarkable. NEUROLOGIC: Patient is alert and oriented x3. Cranial nerves II through XII are grossly i ntact. Motor and sensory are also intact. Normal speech, volume and content. Symmetrical smile. MUSCULOSKELETAL: Normal extremities with adequate strength and full range of motion. LYMPHATICS: No significant lymphadenopathy is noted PSYCHIATRIC: Normal psychiatric evaluation. Limitations: no limitations Course Vital Signs 01/10/22 18:03 Temperature 98.7 F Pulse Rate 95 Respiratory 16 Rate Blood Pressure 178/77 O2 Sat by Pulse 98 Oximetry Medical Decision Making - Medical Decision Making She was having no difficulty breathing only some body aches and feeling a little fevers. Patient will get Paxlovid at the pharmacy instead of doing a monoclonal antibodies. - Lab Data Lab Results 01/10/22 Range/Units 18:05 Coronavirus (PCR) Detected A (Not Detectd) Disposition Clinical Impression: COVID-19 Disposition: HOME SELF-CARE Condition: Good Instructions (If sedation given, give patient instructions): Fever in Adults (ED), COVID-19 (Coronavirus Disease 2019) (ED) Additional Instructions: Patient should take Paxlovid as prescribed. Patient's take Motrin Tylenol for body aches and fever. Patient should return to the emergency department as any difficulty breathing or new symptoms. Is patient prescribed a controlled substance at d/c from ED?: No Referrals: Nonstaff,Physician [Primary Care Provider] - 1-2 days Time of Disposition: 19:32
== END 2022-01-10 19:38 | disposition home or self-care (01) ==
LOC: EC 17:23
DX: U07.1 COVID-19 (principal); J44.9 Chronic obstructive pulmonary disease, unspecified; I10 Essential (primary) hypertension; E78.5 Hyperlipidemia, unspecified; K21.9 Gastro-esophageal reflux disease without esophagitis; F17.200 Nicotine dependence, unspecified, uncomplicated; Z86.718 Personal history of other venous thrombosis and embolism; Z79.01 Long term (current) use of anticoagulants; Z79.899 Other long term (current) drug therapy; Z88.8 Allergy status to other drugs, medicaments and biological substances
CPT/HCPCS: 87635; 99283